=== PATIENT | female | born 1975 | race Caucasian/White ===

== ENCOUNTER 2019-12-20 13:18 | Emergency (ER) | payer MEDICAID ==
[~2019-12-20] VITALS: Ht 162.6 cm; Wt 59.0 kg
[2019-12-20 13:25] VITALS: BP_SYST 145
[2019-12-20] MEDS ORDERED: LORazepam 1 MG TABLET PO ONE (14:15)
[2019-12-20] MEDS ORDERED: KETOROLAC TROMETHAMINE 60 MG/2 ML VIAL IM ONE (14:15)
[2019-12-20 15:50] VITALS: BP_SYST 120
== END 2019-12-20 15:50 | disposition home or self-care (01) ==
LOC: SED 13:18
DX: G44.209 Tension-type headache, unspecified, not intractable (principal); R07.89 Other chest pain
CPT/HCPCS: 81025; 93005; 96372; 99283; J1885